=== PATIENT | female | born 1965 | race African-American/Black ===

== ENCOUNTER 2022-03-28 12:32 | Emergency (ER) | payer OTHER ==
[2022-03-28 13:52] LABS: BASOPHIL 0.4 % (0-2); EOSINOPHIL 0.5 % (0-5); HCT 42.5 % (37.0-47.0); HGB 13.8 g/dl (12.5-16.0); LYMPHOCYTE 50.6 % (15-48); MCH 28.3 pg (25.0-31.0); MCHC 32.5 g/dL (32.0-36.0); MCV 87.3 fL (78.0-100.0); MPV 10.8 fL (6.0-9.5); NEUTROPHIL 41.5 % (41-80); NRBC 0; PLT 244 K/uL (150-400); RBC 4.87 M/uL (4.20-5.40); RDW 13.2 % (11.5-14.0); WBC 5.6 K/uL (4.0-10.5)
[2022-03-28 14:33] LABS: ALBUMIN 4.2 g/dL (3.4-5.0); BILIRUBIN - TOTAL 0.4 mg/dL (0.2-1.0); BUN/CREAT RATIO (CALC) 13.6 RATIO; CREATININE 0.88 mg/dL (0.51-0.95); FT4 (FREE T4) 1.1 ng/dL (0.76-1.46); GLOBULIN (CALCULATION) 4.6 g/dL; MAGNESIUM 2.2 mg/dL (1.8-2.4); POTASSIUM 3.7 mmol/L (3.5-5.1); TOTAL PROTEIN 8.8 g/dL (6.4-8.2)
[2022-03-28 14:50] LABS: BILIRUBIN NEGATIVE (NEGATIVE); BLOOD NEGATIVE Ery/uL (NEGATIVE); CLARITY CLEAR (CLEAR); COLOR YELLOW (YELLOW); GLUCOSE (U) NORMAL (NORMAL); LEUKOCYTES NEGATIVE Leu/uL (NEGATIVE); NITRITE NEGATIVE (NEGATIVE); PROTEIN NEGATIVE (NEGATIVE); SPECIFIC GRAVITY 1.025 (1.001-1.030); UROBILINOGEN 0.2 mg/dL (0.2-1.0)
== END 2022-03-28 17:05 | disposition home or self-care (01) ==
LOC: FER 12:32
PROVIDERS: Emergency Medicine
DX: F44.1 Dissociative fugue (principal)
CPT/HCPCS: 36415; 80053; 81003; 83735; 84100; 84145; 84439; 84443; 84484; 85025; 93005